=== PATIENT | male | born 1990 | race Caucasian/White ===

== ENCOUNTER 2017-07-11 15:31 | Emergency (ER) | payer OTHER ==
[~2017-07-11] VITALS: Ht 187.9 cm; Wt 98.4 kg
[~2017-07-11 15:31] MED LIST: MOTRIN600 MG PO; MOTRIN800 MG PO; PROVENTIL0.09 MG/AC IH
[2017-07-11] MEDS ORDERED: NAPROSYN500 MG PO (15:35)
== END 2017-07-11 16:35 | disposition home or self-care (01) ==
LOC: ED 15:31
DX: S60.211A Contusion of right wrist, initial encounter (principal); R03.0 Elevated blood-pressure reading, without diagnosis of hypertension; Z88.1 Allergy status to other antibiotic agents; W20.8XXA Other cause of strike by thrown, projected or falling object, initial encounter; Y93.89 Activity, other specified; Y92.89 Other specified places as the place of occurrence of the external cause; Y99.9 Unspecified external cause status

== ENCOUNTER 2018-05-20 09:30 | Emergency (ER) | payer OTHER ==
[~2018-05-20] VITALS: Ht 187.9 cm; Wt 108.9 kg
[~2018-05-20 09:30] MED LIST changes: +NAPROSYN500 MG PO
== END 2018-05-20 11:20 | disposition home or self-care (01) ==
LOC: ED 09:30
DX: H18.822 Corneal disorder due to contact lens, left eye (principal); Z88.1 Allergy status to other antibiotic agents

== ENCOUNTER 2018-06-03 22:30 | Emergency (ER) | payer OTHER ==
[~2018-06-03] VITALS: Ht 187.9 cm; Wt 108.9 kg
[2018-06-03] MEDS ORDERED: DOXYCYCLINE100 M3 PO (22:37)
== END 2018-06-03 22:40 | disposition home or self-care (01) ==
LOC: ED 22:30
DX: L03.316 Cellulitis of umbilicus (principal); Z88.1 Allergy status to other antibiotic agents